=== PATIENT | male | born 1985 | race Two or more races ===

== ENCOUNTER 2017-05-27 16:31 | Emergency (ER) | payer OTHER ==
[~2017-05-27] VITALS: Ht 170.2 cm; Wt 99.7 kg
[~2017-05-27 16:31] MED LIST: BENADRYL50 MG PO; CIPRO HC OTIC S10 M1 EACH EAR; KEFLEX500 MG PO; NO MEDICATIONS; VICODIN 5/500 T1 TAB PO
== END 2017-05-27 20:00 ==
LOC: EDMED 16:31
DX: R51 Headache (principal); R11.0 Nausea; F17.210 Nicotine dependence, cigarettes, uncomplicated
CPT/HCPCS: J0780; J1200; J1885; J7030